=== PATIENT | male | born 1970 | race Caucasian/White ===

== ENCOUNTER 2018-01-29 07:23 | Day surgery (SDC) | payer OTHER ==
[2018-01-18 16:54] VITALS: BMI 28.3
[2018-01-29] MEDS ORDERED: DEXMEDETOMIDINE HCL 200 MCG/2 ML ML IVPB ONE (10:37)
[2018-01-29] MEDS ORDERED: MEPIVACAINE HCL/PF 15 MG/ML ML ONE (10:37)
[2018-01-29] MEDS ORDERED: MIDAZOLAM HCL 2 MG/2 ML SINGLE DOSE VIAL ONE ×3 (10:37→11:01)
[2018-01-29] MEDS ORDERED: DEXAMETHASONE SOD PHOSPHATE/PF 10 MG/ML SDV ONE (10:38)
[2018-01-29] MEDS ORDERED: BUPIVACAINE HCL/PF (5 MG/ML) 30 ML VIAL IJ ONE (10:38)
--- NOTE | 2018-01-29 10:39 | HP ---
History & Physical Update - History History: No Change - Physical Physical: No Change - Assessment Assessment: No Change - Plan Plan: No Change (Full H&P in chart from 01/05/2018)
[2018-01-29] MEDS ORDERED: PROPOFOL 20 ML ONE ×2 (11:01)
[2018-01-29] MEDS ORDERED: BUPIVACAINE HCL/EPINEPHRINE/PF 30 ML VIAL IJ ONE (11:05)
[2018-01-29] MEDS ORDERED: ONDANSETRON 4 MG/2 ML VIAL ONE (11:06)
[2018-01-29] MEDS ORDERED: ceFAZolin SODIUM 1 GM VIAL ONE (11:06)
[2018-01-29] MEDS ORDERED: KETOROLAC TROMETHAMINE 30 MG/1 ML VIAL ONE (11:06)
[2018-01-29] MEDS ORDERED: DEXAMETHASONE SOD PHOSPHATE 4 MG/1 ML VIAL ONE (11:06)
[2018-01-29] MEDS ORDERED: ePHEDrine SULFATE 50 MG/1 ML AMPULE ONE (11:33)
[2018-01-29] MEDS ORDERED: oxyCODONE HCL 5 MG TABLET PO PRN ×3 (12:34→12:45)
--- NOTE | 2018-01-29 12:36 | DS ---
Physical Examination Vital Signs: Vital Signs Temperature 97.7 F 01/29/18 07:53 Pulse Rate 68 01/29/18 07:53 Respiratory Rate 18 01/29/18 07:53 Blood Pressure 142/90 01/29/18 07:53 O2 Sat by Pulse Oximetry (%) 96 01/29/18 07:53 Discharge Summary Reason For Visit: RT SHOULDER ROTATOR CUFF TEAR, BICEPS TENDON TEAR - Instructions - Home Medications Comprehensive Discharge Medication List: Ambulatory Orders Ascorbic Acid [Vitamin C] 500 mg PO DAILY 01/18/18 Dicyclomine HCl [Bentyl -] 20 mg PO HS 01/18/18 Escitalopram Oxalate [Lexapro -] 20 mg PO HS 01/18/18 Tracy-3 Fatty Acids [Tracy-3] 1 each PO DAILY 01/18/18 Omeprazole/Sodium Bicarbonate [Zegerid 20mg (RX)] 1 each PO DAILY 01/18/18 hydrOXYzine PAMOATE [Vistaril -] 20 mg PO HS 01/18/18
--- NOTE | 2018-01-29 12:36 | OP ---
Operative Note - Note: Operative Date: 01/29/18 Pre-Operative Diagnosis: right shoulder partial biceps tear, subacromial bursitis, partial subscap tear Operation: RSA, subscap debridement, MGHL release, open biceps tenodesis Post-Operative Diagnosis: Same as Pre-op Surgeon: Rudy Fernández Anesthesia: General Operative Report Dictated: Yes
[2018-01-29] MEDS ORDERED: PROMETHAZINE HCL 25 MG/1 ML VIAL IVPUSH PRN (12:45)
[2018-01-29] MEDS ORDERED: ONDANSETRON 4 MG/2 ML VIAL IVPUSH PRN (12:45)
[2018-01-29] MEDS ORDERED: diazePAM 5 MG TABLET PO ONE (13:08)
[2018-01-29] MEDS ORDERED: oxyCODONE HCL 10 MG SUSTAINED ACTING TABLET ONE (14:15)
[2018-01-29] MEDS ORDERED: oxyCODONE HCL 10 MG SUSTAINED ACTING TABLET PO ONE (15:00)
--- NOTE | 2018-01-29 15:11 | SURG ---
Surgery Clinical Psychologist Private Practice Note Clinical Psychologist Private Practice: Arle[facility] Fofana PA-C Date of Service: 01/29/18 Diagnosis: right shoulder partial biceps tear, subacromial bursitis, partial subscap tear Procedure: RSA, subscap debridement, MGHL release, open biceps tenodesis I was present for the entirety of the operative procedure. For further detail, please refer to operative report. Visit type - Case Type Case Type: Scheduled - Emergency Emergency Visit: No - New patient This patient is new to me today: Yes Date on this admission: 01/29/18
[2018-01-29 15:22] VITALS: TEMP 97.6
[2018-01-29 15:25] VITALS: BP 120/74; PULSE 74
--- NOTE | 2018-02-05 16:20 | PATH ---
Surgical Pathology Report Patient Name: MARY AG [facility]. Rec. #: [id number] /Age/Gender: 1970 (Age: 48) / M Account: [id number] Location: [facility] Taken: 01/29/2018 Received: 01/29/2018 Reported: 02/05/2018 Physicians: Rudy Fernández M.D. Specimen(s) Received RIGHT BICEPS TENDON Clinical History Right shoulder rotator cuff tear, right biceps tendon tear Final Diagnosis BICEPS TENDON, RIGHT, REPAIR: FIBROCOLLAGENOUS TISSUE, CONSISTENT WITH TENDON. Electronically Signed Marie Lau M.D. Gross Description Received in formalin labeled "right biceps tendon," is an 8.3 x 1.2 x 0.3 cm portion of fibrous tissue, consistent with a tendon. Toy Painter sections are submitted in one cassette. 02/01/2018 saudi02/01/2018
== END 2018-01-29 15:15 | disposition home or self-care (01) ==
LOC: FASU 07:23
PROVIDERS: ATTEND Orthopaedic Surgery
PROC: 0RNJ4ZZ Release Right Shoulder Joint, Percutaneous Endoscopic Approach (ICD-10-PCS; 2018-01-29)
PROC: 0LS10ZZ Reposition Right Shoulder Tendon, Open Approach (ICD-10-PCS; 2018-01-29)
PROC: 0LQ14ZZ Repair Right Shoulder Tendon, Percutaneous Endoscopic Approach (ICD-10-PCS; principal; 2018-01-29 09:00)
DX: M75.101 Unspecified rotator cuff tear or rupture of right shoulder, not specified as traumatic (principal); M66.821 Spontaneous rupture of other tendons, right upper arm; M75.51 Bursitis of right shoulder; M25.311 Other instability, right shoulder
CPT/HCPCS: 88304-TC; 94760